=== PATIENT | male | born 1990 | race African-American/Black ===

== ENCOUNTER 2016-04-09 | Emergency (ER) | payer OTHER | END 2016-04-10 03:50 | disposition home or self-care (01) | DX: J10.1 Influenza due to other identified influenza virus with other respiratory manifestations (principal); I10 Essential (primary) hypertension | CPT/HCPCS: 87081; 87880; 99283 ==

== ENCOUNTER 2016-05-13 21:54 | Emergency (ER) | payer SELFPAY ==
[2016-05-14 00:43] LABS: HEMOGLOBIN 14.1 gm/dl (14.0-17.5); RED BLOOD COUNT 4.66 M/UL (4.20-5.50); WHITE BLOOD COUNT 6.8 K/UL (4.5-11.0)
[2016-05-14 01:03] LABS: BUN/CREATININE RATIO 11 (0-10)
== END 2016-05-14 02:36 | disposition home or self-care (01) ==
LOC: ER1 21:54
PROVIDERS: Student in an Organized Health Care Education/Training Program
DX: R11.2 Nausea with vomiting, unspecified (principal)
CPT/HCPCS: 36415; 80053; 82150; 83690; 85025; 99284

== ENCOUNTER 2020-04-25 22:09 | Emergency (ER) | payer OTHER ==
[~2020-04-25 22:09] MED LIST: IBUPROFEN800 MG PO; ZOFRAN4 MG PO
[2020-04-25 23:13] LABS: HEMOGLOBIN 14.5 gm/dl (14.0-17.5); RED BLOOD COUNT 4.83 M/UL (4.20-5.50)
[2020-04-25 23:22] LABS: BUN/CREATININE RATIO 17 (0-10)
[2020-04-26] MEDS ORDERED: PREDNISONE50 MG PO (01:34)
[2020-04-26] MEDS ORDERED: EPIPEN 2-P0.3 MG/0.3 IM (01:34)
[2020-04-26] MEDS ORDERED: BENADRYL 25MG C25 MG PO (01:34)
== END 2020-04-26 01:50 | disposition home or self-care (01) ==
LOC: ER1 22:09
PROVIDERS: Emergency Medicine
DX: T78.02XA Anaphylactic reaction due to shellfish (crustaceans), initial encounter (principal)
CPT/HCPCS: 80053; 83690; 85025; 93005; 94664; 94760; 96365; 96372; 96375; 99283; J0171; J1200; J2405; J2930